=== PATIENT | female | born 1970 | race Caucasian/White ===

== ENCOUNTER 2016-07-17 15:14 | Outpatient (CLI) ==
[2016-01-04 15:14] VITALS: BMI 25.9
[2016-07-17 16:18] LABS: BASOPHILS % (AUTO) 0.3 % (0.0-3.0); EOSINOPHILS # (AUTO) 0.3 K/ul (0.0-0.7); EOSINOPHILS % (AUTO) 2.7 % (0.0-7.0); HEMATOCRIT 43.3 % (37.0-47.0); HEMOGLOBIN 15.2 g/dl (12.0-16.0); IMMATURE GRANULOCYTE % (AUTO) 0.2 % (0.0-5.0); LYMPHOCYTES # (AUTO) 2.4 K/uL (0.60-3.4); LYMPHOCYTES % (AUTO) 25.2 (10.0-50.0); MEAN CORPUSCULAR HEMOGLOBIN 30.8 pg (27.0-31.0); MEAN CORPUSCULAR HGB CONC 35.1 (31.8-35.4); MEAN CORPUSCULAR VOLUME 87.8 fl (81.0-99.0); MONOCYTES # (AUTO) 0.7 K/uL (0.4-2.0); MONOCYTES % (AUTO) 7.6 (0-10); NEUTROPHILS # (AUTO) 6.2 K/ul (2.0-6.9); PLATELET COUNT 273 10^3/uL (140-440); RED BLOOD COUNT 4.93 10^6/ul (4.20-5.40); WHITE BLOOD COUNT 9.66 K/ul (4.6-10.2)
[2016-07-17 16:53] LABS: ALBUMIN 3.7 g/dL (3.4-5.0); ALBUMIN/GLOBULIN RATIO 0.97; ANION GAP 12.3; BILIRUBIN,TOTAL 0.28 mg/dL (0.00-1.20); BUN/CREATININE RATIO 24.63; CALCIUM 9.6 mg/dL (8.2-10.2); CHOL/HDL RATIO 3.2 (4.5-5.5); CREATININE 0.69 mg/dL (0.60-1.30); POTASSIUM 4.3 mmol/L (3.5-5.10); TOTAL PROTEIN 7.5 g/dL (6.4-8.2)
== END 2016-07-17 15:15 | disposition home or self-care (01) ==
LOC: LAB 15:14
PROVIDERS: ATTEND Nurse Practitioner Family
DX: Z72.0 Tobacco use (principal); Z78.9 Other specified health status
CPT/HCPCS: 36415; 80053; 80061; 84443; 85025

== ENCOUNTER 2016-08-08 08:00 | Outpatient (CLI) ==
[2016-01-04 15:14] VITALS: BMI 25.9
--- NOTE | 2016-08-08 10:25 | MAMMO ---
EXAM: Digital screening mammogram HISTORY: Screening COMPARISON: 06/08/2014 FINDINGS: Digital MLO and CC views of the right and left breast were performed. There are scatter ed fibroglandular densities. There is no evidence for mass, asymmetry, distortion, or suspicious ca lcifications in either breast. IMPRESSION: 1. No evidence of malignancy in the right or left breast. 2. Annual screening mammogram is recommended in one year. BIRADS category 1, negative examination
== END 2016-08-08 08:01 | disposition home or self-care (01) ==
LOC: RAD 08:00
PROVIDERS: ATTEND Nurse Practitioner Family
DX: Z12.31 Encounter for screening mammogram for malignant neoplasm of breast (principal)

== ENCOUNTER 2016-10-14 15:17 | Emergency (ER) ==
[2016-10-14 15:23] VITALS: BP 106/70; TEMP 97.8; BMI 23.0
[2016-10-14] MEDS ORDERED: DECADRON 4 MG/ML SDV IM STA (15:32)
[2016-10-14] MEDS ORDERED: DUONEB NEB STA (15:32)
[2016-10-14] MEDS ORDERED: ZITHROMAX PO STA (15:33)
--- NOTE | 2016-10-14 16:02 | DI ---
EXAM: Two-view chest. HISTORY: Cough. COMPARISON: 02/03/2016 FINDINGS: PA and and lateral views of the chest. There are postoperative changes in the cervical sp ine. The lungs are clear without consolidation or effusion. The heart size and pulmonary vasculatur e is normal. There is no pneumothorax. The osseous structures are normal for age. The aorta is un remarkable. IMPRESSION: No acute pulmonary disease.
--- NOTE | 2016-10-14 16:23 | ED.PDOC ---
General ED Provider: Dr. CHARISMA VÁSQUEZ Chief Complaint: Respiratory Complaint Stated Complaint: COUGH RUNNY NOSE Time Seen by Physician: 15:18 Mode of Arrival: Walk-In Information Source: Patient Exam Limitations: No limitations [facility] Documentation Reviewed and Agree: Yes Respiratory Complaint Exam - Respiratory Complaint/Exam Symptoms Are: Still present Timing: Constant Initial Severity: Mild Current Severity: Mild Location: Chest Character: Reports: Non-productive cough Aggravating: Reports: None Alleviating: Reports: None Associated Signs and Symptoms: Denies: Rapid breathing, Dyspnea, Fever, Chills, Chest pain, Pleuritic chest pain, Wheezing, Hemoptysis, Dizziness, Calf pain, Calf swelling, Edema, URI, Nasal congestion, Hoarseness, Sinus discomfort, Vomiting, Sore throat, Weight loss, Decreased oral intake, Increased thirst, Increased appetite, Increased urination Related History: Reports: Similar episode History of Healthcare-Acquired Pneumonia: No Related Surgical History: Reports: None Pulmonary Embolism Risk Factors: Smoking Cardiac Risk Factors: Reports: Smoking Pseudomonas Risk Factors: Reports: None Tuberculosis Risk Factors: Reports: None Status Asthmaticus Risk Factors: Reports: None Home Oxygen Use: No Recent Stress Test: No Recent Echo/LV Function: No Current Antibiotic Use: No Current Asthma Medication Use: No Respiratory Distress: None Inadequate Respiratory Effort: No Dysphagia Present: No Stridor Present: No JVD Present: No Accessory Muscle Use: No Retractions: Not Present Diminished Breath Sounds: No Sinus Tenderness: None Grunting Respirations: No Kussmaul Respirations: No Differential Diagnoses: Pneumonia, Bronchitis Review of Systems - Review Of Systems Constitutional: Reports: No symptoms Eyes: Reports: No symptoms Ears, Nose, Mouth, Throat: Reports: No symptoms Respiratory: Reports: Cough ( WITH PHELEM CLEAR PHELEM) Cardiac: Reports: No symptoms GI: Reports: No symptoms : Reports: No symptoms Musculoskeletal: Reports: No symptoms Skin: Reports: No symptoms Neurological: Reports: No symptoms Endocrine: Reports: No symptoms Hematologic/Lymphatic: Reports: No symptoms All Other Systems: Reviewed and Negative Past Medical History - Past Medical History Endocrine: Reports: None Cardiovascular: Reports: None Respiratory: Reports: COPD Hematological: Reports: None Gastrointestinal: Reports: GERD, Liver (HEP-C. ) Genitourinary: Reports: UTI Neuro/Psych: Reports: Bipolar Disorder Musculoskeletal: Reports: Back Pain Cancer: Reports: None Last Menstrual Period: 5 days ago Other Pertinent Past Medical History: HEP-C. CURRENT INTERNAL HEMROIDS. - Surgical History General Surgical History: Reports: Orthopedic (C5-6 Fusion) - Family History Family History: Reports: None - Social History Smoking Status: Current some day smoker Hx Substance Use: No Alcohol Screening: Occasionally - Immunizations Tetanus Shot up to Date: Yes Physical Exam - Physical Exam Appearance: Well-appearing, No pain distress, Well-nourished Eyes: YEN, EOMI, Conjunctiva clear ENT: Ears normal, Nose normal, Oropharynx normal Respiratory: Airway patent, Breath sounds clear, Breath sounds equal, Respirations nonlabored Cardiovascular: RRR, Pulses normal, No rub, No murmur GI/: Soft, Nontender, No masses, Bowel sounds normal, No Organomegaly Musculoskeletal: Normal strength, ROM intact, No edema, No calf tenderness Skin: Warm, Dry, Normal color Neurological: Sensation intact, Motor intact, Reflexes intact, Cranial nerves intact, Alert, Oriented Psychiatric: Affect appropriate, Mood appropriate Interpretation - Radiology Interpretation Radiology Interpretation By: ED Physician Radiology Results: Negative Exam Interpreted: CXR Critical Care Note - Critical Care Note Total Time (mins): 0 Course - Course Orders, Labs, Meds: Orders Category Date Time Status Azithromycin [Zithromax] MEDS 10/14/16 15:33 Discontinued 500 mg PO ONCE STA Dexamethasone 4 mg/ml Inj [Decadron 4 mg/ml Sdv] MEDS 10/14/16 15:32 Discontinued 4 mg IM ONCE STA CHEST, 2 VIEWS PA & LAT Stat RADS 10/14/16 15:33 Completed Medications Discontinued Medications Generic Name Dose Route Start Last Admin Trade Name Katie PRN Reason Stop Dose Admin Azithromycin 500 mg 10/14/16 15:33 10/14/16 15:40 Zithromax PO 10/14/16 15:34 500 mg ONCE STA Administration Dexamethasone Sodium Phosphate 4 mg 10/14/16 15:32 10/14/16 15:40 Decadron 4 Mg/Ml Sdv IM 10/14/16 15:33 4 mg ONCE STA Administration Vital Signs: Temp Pulse Resp BP Pulse Ox 10/14/16 15:18 97.8 F 103 H 16 106/70 97 Departure - Departure Time of Disposition: 16:22 (REFUSED AJITH MACIAS PRESENT) Disposition: HOME SELF-CARE Discharge Problem: Viral syndrome Instructions: Viral Syndrome (ED) Condition: Good Pt referred to PMD for follow-up: Yes Allergies/Adverse Reactions: Allergies No Known Allergies Allergy (Uncoded 11/22/12 12:31) Home Medications: Ambulatory Orders 1 [No Reported Medications] 10/14/16
== END 2016-10-14 16:32 | disposition home or self-care (01) ==
LOC: ED 15:17
DX: B34.9 Viral infection, unspecified (principal); F17.210 Nicotine dependence, cigarettes, uncomplicated
CPT/HCPCS: 96372; 99283

== ENCOUNTER 2017-02-02 05:25 | Outpatient (CLI) ==
[2017-02-02 05:49] VITALS: BMI 23.1
== END 2017-02-02 05:26 | disposition critical access hospital (66) ==
LOC: AMBL 05:25
PROVIDERS: ATTEND Emergency Medicine
DX: T78.40XA Allergy, unspecified, initial encounter (principal); J31.0 Chronic rhinitis

== ENCOUNTER 2017-02-02 05:40 | Emergency (ER) ==
[2017-02-02 05:49] VITALS: BP 128/84; TEMP 98.7; BMI 23.1
[2017-02-02] MEDS ORDERED: DECADRON 4 MG/ML SDV IM STA (06:18)
--- NOTE | 2017-02-02 06:21 | ED.PDOC ---
General ED Provider: Dr. NATALIE UREÑA Chief Complaint: Allergic Reaction Stated Complaint: Itching all over the body, Time Seen by Physician: 06:18 Mode of Arrival: Ambulance Information Source: Patient Primary Care Provider: NATALIE UREÑA-[facility] Nursing and Triage Documentation Reviewed and Agree: Yes Reviewed sepsis parameters & appropriate labs ordered?: Yes System Inflammatory Response Syndrome: Not Applicable Sepsis Protocol: For patient's 13 years and over: Temp is 96.8 and below OR 101 and greater Pulse >90 BPM Resp >20/minute Acutely Altered Mental Status Are patient's symptoms suggestive of a new infection, such as: -Pneumonia -Skin, Soft Tissue -Endocarditis -UTI -Bone, Joint Infection -Implantable Device -Acute Abdominal Infection -Wound Infection -Meningitis -Blood Stream Catheter Infection -Unknown Skin Complaint Exam - Skin Rash/Itching Complaint/Exam Symptoms Are: Still present Initial Severity: Mild Current Severity: Mild Potential Exposures: Reports: Pet exposure Aggravating: Reports: None Alleviating: Reports: None Associated Signs and Symptoms: Denies: Difficulty breathing, Fever, Chills Differential Diagnoses: Contact Dermatitis Review of Systems - Review Of Systems Constitutional: Reports: No symptoms Eyes: Reports: No symptoms Ears, Nose, Mouth, Throat: Reports: No symptoms Respiratory: Reports: No symptoms Cardiac: Reports: No symptoms GI: Reports: No symptoms : Reports: No symptoms Musculoskeletal: Reports: No symptoms Skin: Reports: Rash Neurological: Reports: No symptoms Endocrine: Reports: No symptoms Hematologic/Lymphatic: Reports: No symptoms All Other Systems: Reviewed and Negative Past Medical History - Past Medical History Previously Healthy: Yes Endocrine: Reports: None Cardiovascular: Reports: None Respiratory: Reports: COPD Hematological: Reports: None Gastrointestinal: Reports: GERD, Liver (HEP-C. ) Genitourinary: Reports: UTI Neuro/Psych: Reports: Bipolar Disorder Musculoskeletal: Reports: Back Pain Cancer: Reports: None Last Menstrual Period: 3 WEEKS AGO Other Pertinent Past Medical History: HEP-C. CURRENT INTERNAL HEMROIDS. - Surgical History General Surgical History: Reports: Orthopedic (C5-6 Fusion) - Family History Family History: Reports: None - Social History Smoking Status: Current some day smoker Hx Substance Use: No Alcohol Screening: Occasionally - Immunizations Tetanus Shot up to Date: No Physical Exam - Physical Exam Appearance: Well-appearing, No pain distress, Well-nourished Eyes: YEN, EOMI, Conjunctiva clear ENT: Ears normal, Nose normal, Oropharynx normal Respiratory: Airway patent, Breath sounds clear, Breath sounds equal, Respirations nonlabored Cardiovascular: RRR, Pulses normal, No rub, No murmur GI/: Soft, Nontender, No masses, Bowel sounds normal, No Organomegaly Musculoskeletal: Normal strength, ROM intact, No edema, No calf tenderness Skin: Warm, Dry, Normal color Neurological: Sensation intact, Motor intact, Reflexes intact, Cranial nerves intact, Alert, Oriented Psychiatric: Affect appropriate, Mood appropriate Critical Care Note - Critical Care Note Total Time (mins): 10 Course - Course Orders, Labs, Meds: Orders Category Date Time Status Dexamethasone 4 mg/ml Inj [Decadron 4 mg/ml Sdv] MEDS 02/02/17 06:18 Stat 4 mg IM ONCE STA Vital Signs: Temp Pulse Resp BP Pulse Ox 02/02/17 05:43 98.7 F 100 H 20 128/84 99 Departure - Departure Time of Disposition: 06:21 Disposition: HOME SELF-CARE Discharge Problem: Contact dermatitis Qualifiers: Contact dermatitis type: allergic Contact dermatitis trigger: other trigger Qualified Code(s): L23.89 - Allergic contact dermatitis due to other agents; L23.8 - Allergic contact dermatitis due to other agents Instructions: Contact Dermatitis (ED) Condition: Stable Pt referred to PMD for follow-up: Yes Additional Instructions: Take medication with food. If not better f/u at [facility] Prescriptions: Diphenhydramine HCl [Benadryl] 25 mg PO Q6H #14 capsule Prednisone 10 mg PO BIDWM #14 tablet Allergies/Adverse Reactions: Allergies aspirin Adverse Reaction (Verified 02/02/17 05:49) "ACHY STOMACH" Home Medications: Ambulatory Orders Diphenhydramine HCl [Benadryl] 25 mg PO Q6H #14 capsule 02/02/17 Prednisone 10 mg PO BIDWM #14 tablet 02/02/17 Disposition Discussed With: Patient
== END 2017-02-02 06:44 | disposition home or self-care (01) ==
LOC: ED 05:40
DX: L23.89 Allergic contact dermatitis due to other agents (principal); F17.210 Nicotine dependence, cigarettes, uncomplicated
CPT/HCPCS: 96372; 99282

== ENCOUNTER 2017-03-03 18:47 | Emergency (ER) ==
[2017-03-03 18:57] VITALS: BP 117/67; TEMP 99.9; BMI 23.5
[2017-03-03] MEDS ORDERED: TETANUS DIPHTHERIA TOXOIDS IM ONE (19:19)
[2017-03-03] MEDS ORDERED: CLEOCIN PO STA (19:20)
--- NOTE | 2017-03-03 19:50 | DI ---
EXAM: Left fourth digit HISTORY: Foreign body COMPARISON: None. FINDINGS: There is no evidence of fracture or bony abnormality. The surrounding soft tissues are un remarkable. IMPRESSION: No evidence of fracture or foreign body.
--- NOTE | 2017-03-03 19:53 | ED.PDOC ---
General ED Provider: Dr. FREDA STILES-ER Chief Complaint: Finger Laceration Stated Complaint: i cut my finger on picture frame yesterday--now its swollen and red Time Seen by Physician: 19:53 Mode of Arrival: Walk-In Information Source: Patient Exam Limitations: No limitations Primary Care Provider: NATALIE UREÑA-[facility] Nursing and Triage Documentation Reviewed and Agree: Yes Reviewed sepsis parameters & appropriate labs ordered?: Yes System Inflammatory Response Syndrome: Not Applicable Sepsis Protocol: For patient's 13 years and over: Temp is 96.8 and below OR 101 and greater Pulse >90 BPM Resp >20/minute Acutely Altered Mental Status Are patient's symptoms suggestive of a new infection, such as: -Pneumonia -Skin, Soft Tissue -Endocarditis -UTI -Bone, Joint Infection -Implantable Device -Acute Abdominal Infection -Wound Infection -Meningitis -Blood Stream Catheter Infection -Unknown Skin Complaint Exam - Laceration/Abrasion/Hand Complaint/Exam Location of Injury: Left, Digit #4 Mechanism of Injury: Laceration Onset/Duration: 24 hrs Symptoms Are: Still present Initial Severity: Mild Current Severity: Mild Aggravating: Movement Alleviating: Compression Associated Signs and Symptoms: Reports: Erythema. Denies: Fever, Chills, Numbness, Tingling Differential Diagnoses: Laceration, Other Review of Systems - Review Of Systems Constitutional: Reports: No symptoms Eyes: Reports: No symptoms Ears, Nose, Mouth, Throat: Reports: No symptoms Respiratory: Reports: No symptoms Cardiac: Reports: No symptoms GI: Reports: No symptoms : Reports: No symptoms Musculoskeletal: Reports: No symptoms Skin: Reports: No symptoms Neurological: Reports: No symptoms Endocrine: Reports: No symptoms Hematologic/Lymphatic: Reports: No symptoms All Other Systems: Reviewed and Negative Past Medical History - Past Medical History Previously Healthy: Yes Endocrine: Reports: None Cardiovascular: Reports: None Respiratory: Reports: COPD Hematological: Reports: None Gastrointestinal: Reports: GERD, Liver (HEP-C. ) Genitourinary: Reports: UTI Neuro/Psych: Reports: Bipolar Disorder Musculoskeletal: Reports: Back Pain Cancer: Reports: None Last Menstrual Period: 01/30/2018 Other Pertinent Past Medical History: HEP-C. CURRENT INTERNAL HEMROIDS. - Surgical History General Surgical History: Reports: Orthopedic (C5-6 Fusion) - Family History Family History: Reports: None - Social History Smoking Status: Current every day smoker Hx Substance Use: No Alcohol Screening: Occasionally Lives: With family - Immunizations Tetanus Shot up to Date: (unsure) Physical Exam - Physical Exam Appearance: Well-appearing, No pain distress, Well-nourished Pain Distress: Mild Eyes: YEN, EOMI, Conjunctiva clear ENT: Ears normal, Nose normal, Oropharynx normal Neck: Supple Respiratory: Airway patent, Breath sounds clear, Breath sounds equal, Respirations nonlabored Cardiovascular: RRR, Pulses normal, No rub, No murmur GI/: Soft, Nontender, No masses, Bowel sounds normal, No Organomegaly Musculoskeletal: Normal strength, ROM intact, No edema, No calf tenderness Skin: Warm, Dry, Normal color Neurological: Sensation intact, Motor intact, Reflexes intact, Cranial nerves intact, Alert, Oriented Psychiatric: Affect appropriate, Mood appropriate Critical Care Note - Critical Care Note Total Time (mins): 0 Course - Course Orders, Labs, Meds: Orders Category Date Time Status Clindamycin HCl [Cleocin] MEDS 03/03/17 19:20 Discontinued 150 mg PO ONCE STA Tetanus, Diphtheria Tox,Adult [Tetanus Diphtheria MEDS 03/03/17 19:19 Discontinued Toxoids] 0.5 ml IM .ONCE ONE FINGER(S), LEFT MIN 2V Stat RADS 03/03/17 19:02 Completed Medications Discontinued Medications Generic Name Dose Route Start Last Admin Trade Name Katie PRN Reason Stop Dose Admin Clindamycin HCl 150 mg 03/03/17 19:20 03/03/17 19:26 Cleocin PO 03/03/17 19:21 150 mg ONCE STA Administration Tetanus/Diphtheria Toxoids 0.5 ml 03/03/17 19:19 03/03/17 19:28 Tetanus Diphtheria Toxoids IM 03/03/17 19:20 0.5 ml .ONCE ONE Administration she does have good flexion and extension of the finger--good cap refill-- slightly erythematous around lac Vital Signs: Temp Pulse Resp BP Pulse Ox 03/03/17 18:51 99.9 F H 86 18 117/67 97 Departure - Departure Time of Disposition: 19:57 Disposition: HOME SELF-CARE Discharge Problem: Laceration of finger Instructions: Finger Laceration (ED) Condition: Good Pt referred to PMD for follow-up: Yes IPMP verified?: No Additional Instructions: wash wound with soap and water--apply triple antbx till healed--clindamycin 150mg tid x 7 days--f/u with ortho Allergies/Adverse Reactions: Allergies aspirin Adverse Reaction (Verified 02/02/17 05:49) "ACHY STOMACH" Home Medications: Ambulatory Orders 1 [No Reported Medications] 03/03/17 Disposition Discussed With: Patient
== END 2017-03-03 20:05 | disposition home or self-care (01) ==
LOC: ED 18:47
DX: S61.215A Laceration without foreign body of left ring finger without damage to nail, initial encounter (principal); W45.8XXA Other foreign body or object entering through skin, initial encounter; F17.210 Nicotine dependence, cigarettes, uncomplicated
CPT/HCPCS: 90471; 90714; 96372; 99283

== ENCOUNTER 2017-06-05 14:57 | Outpatient (CLI) | END 2017-06-05 14:58 | disposition home or self-care (01) | LOC: CAR 14:57 | PROVIDERS: ATTEND Physician Assistant | DX: R06.81 Apnea, not elsewhere classified (principal) ==

== ENCOUNTER 2017-06-14 12:48 | Outpatient (CLI) | END 2017-06-14 12:49 | disposition home or self-care (01) | LOC: CAR 12:48 | PROVIDERS: ATTEND Physician Assistant | DX: R06.00 Dyspnea, unspecified (principal) ==

== ENCOUNTER 2017-06-23 12:00 | Outpatient (CLI) | END 2017-06-23 12:01 | disposition short-term general hospital (02) | LOC: AMBL 12:00 | PROVIDERS: ATTEND Family Medicine | DX: R10.9 Unspecified abdominal pain (principal) ==

== ENCOUNTER 2017-07-17 10:06 | Outpatient (CLI) | END 2017-07-17 10:27 | disposition short-term general hospital (02) | LOC: AMBL 10:06 | PROVIDERS: ATTEND Internal Medicine | DX: R45.851 Suicidal ideations (principal) ==

== ENCOUNTER 2017-07-26 11:42 | Outpatient (CLI) | END 2017-07-26 11:43 | disposition home or self-care (01) | LOC: LAB 11:42 | PROVIDERS: ATTEND Physician Assistant | DX: R79.89 Other specified abnormal findings of blood chemistry (principal) | CPT/HCPCS: 36415; 80178; 84439; 84443; 84480 ==

== ENCOUNTER 2017-07-26 19:43 | Outpatient (CLI) | END 2017-07-26 20:16 | disposition short-term general hospital (02) | LOC: AMBL 19:43 | PROVIDERS: ATTEND Internal Medicine Geriatric Medicine | DX: S05.62XA Penetrating wound without foreign body of left eyeball, initial encounter (principal); S05.42XA Penetrating wound of orbit with or without foreign body, left eye, initial encounter; R04.0 Epistaxis; H53.8 Other visual disturbances; W26.9XXA Contact with unspecified sharp object(s), initial encounter ==

== ENCOUNTER 2017-07-31 07:36 | Outpatient (CLI) ==
--- NOTE | 2017-07-31 08:26 | US ---
EXAM: Right upper quadrant abdominal ultrasound. History: Abdominal pain. Comparison: Abdominal ultrasound 06/23/2014 Technique: Multiple sonographic images through the abdomen were obtained. Color duplex Doppler was used to interrogate vascular flow. Findings: The liver is not enlarged. The visualized pancreas demonstrates no gross abnormality. No focal live r lesions identified sonographically. Limited visualization of the right kidney demonstrates no evid ence for hydronephrosis. There is antegrade flow within the main portal vein. Periportal echoes wit hin the liver are maintained. No shadowing gallstones. Gallbladder wall is not thickened. Common b ile duct measures 0.4 cm in caliber. Impression: Unremarkable exam
== END 2017-07-31 07:37 | disposition home or self-care (01) ==
LOC: RAD 07:36
PROVIDERS: ATTEND Surgery
DX: R10.84 Generalized abdominal pain (principal)

== ENCOUNTER 2017-09-24 10:18 | Outpatient (CLI) | END 2017-09-24 10:19 | disposition home or self-care (01) | LOC: LAB 10:18 | PROVIDERS: ATTEND Physician Assistant | DX: F31.9 Bipolar disorder, unspecified (principal) | CPT/HCPCS: 36415; 80178 ==

== ENCOUNTER 2017-10-24 11:25 | Outpatient (CLI) ==
[2017-10-16 03:30] VITALS: BMI 25.7
== END 2017-10-24 11:40 | disposition short-term general hospital (02) ==
LOC: AMBL 11:25
PROVIDERS: ATTEND Emergency Medicine
DX: F10.231 Alcohol dependence with withdrawal delirium (principal)

== ENCOUNTER 2017-10-26 10:44 | Outpatient (CLI) ==
[2017-10-16 03:30] VITALS: BMI 25.7
== END 2017-10-26 10:45 | disposition home or self-care (01) ==
LOC: LAB 10:44
PROVIDERS: ATTEND Physician Assistant
DX: F31.13 Bipolar disorder, current episode manic without psychotic features, severe (principal)
CPT/HCPCS: 36415; 80178

== ENCOUNTER 2017-11-04 20:07 | Emergency (ER) ==
[2017-11-04 20:17] VITALS: BMI 29.2
--- NOTE | 2017-11-04 20:20 | ED.PDOC ---
General Stated Complaint: Brought in by police with vocalization of suicidal ideation. She is also has altered LOC with aggression and marlen behavior. Mother had called the police with report that she my want to burn her house. Time Seen by Physician: 20:18 Mode of Arrival: Walk-In Information Source: Police Exam Limitations: No limitations, Altered mental status Nursing and Triage Documentation Reviewed and Agree: Yes Does patient meet sepsis criteria?: No System Inflammatory Response Syndrome: Not Applicable <ELTON ALFORD - Last Filed: 11/05/17 07:22> <FREDA PEREZ - Last Filed: 11/05/17 18:41> ED Provider: Dr. FREDA PEREZ Chief Complaint: Psychiatric Complaint Primary Care Provider: FAB CABA Sepsis Protocol: For patient's 13 years and over: Temp is 96.8 and below OR 101 and greater Pulse >90 BPM Resp >20/minute Acutely Altered Mental Status Are patient's symptoms suggestive of a new infection, such as: -Pneumonia -Skin, Soft Tissue -Endocarditis -UTI -Bone, Joint Infection -Implantable Device -Acute Abdominal Infection -Wound Infection -Meningitis -Blood Stream Catheter Infection -Unknown Review of Systems - Review Of Systems Constitutional: Reports: Other (uncooperative unable to answer. ) Neurological: Reports: Anxiety, Emotional problems All Other Systems: Other (unable to obtain due to change in LOC) <ELTON ALFORD - Last Filed: 11/05/17 07:22> Past Medical History - Past Medical History Previously Healthy: Yes Endocrine: Reports: None Cardiovascular: Reports: None Respiratory: Reports: COPD Hematological: Reports: None Gastrointestinal: Reports: GERD, Liver (HEP-C. ) Genitourinary: Reports: UTI Neuro/Psych: Reports: Bipolar Disorder Musculoskeletal: Reports: Back Pain Cancer: Reports: None Last Menstrual Period: UNABLE TO OBTAIN Other Pertinent Past Medical History: HEP-C. CURRENT INTERNAL HEMROIDS. - Surgical History General Surgical History: Reports: Orthopedic (C5-6 Fusion) - Family History Family History: Reports: None - Social History Smoking Status: Unknown if ever smoked Hx Substance Use: No Alcohol Screening: Occasionally - Immunizations Tetanus Shot up to Date: Yes <ELTON ALFORD - Last Filed: 11/05/17 07:22> Physical Exam - Physical Exam Appearance: Ill-appearing Psychiatric: Anxious (agressive ) <ELTON ALFORD - Last Filed: 11/05/17 07:22> Interpretation - EKG Interpretation Time of EKG #1: 23:04 Rate: Normal Rhythm: Sinus [place]: NL ST Segment: Normal <ELTON ALFORD - Last Filed: 11/05/17 07:22> Re-Evaluation - Re-Evaluation Time of Re-Evaluation: 07:23 Status: Improved (rested well after geodon and) Vital Signs Stable: Yes <ELTON ALFORD - Last Filed: 11/05/17 07:22> Physician Notification - Case Discussed Physician Notified: Dr fonseca Time of Notification: 23:36 (Declined admission due to ease of transfer to Psych from ER than after they area admitted. ) Endorsed To/Discussed With: Dr Priest Time of Discussion: 07:24 <ELTON ALFORD - Last Filed: 11/05/17 07:22> Critical Care Note - Critical Care Note Total Time (mins): 45 <ELTON ALFORD - Last Filed: 11/05/17 07:22> Course - Course Hematology/Chemistry: 11/04/17 21:37 11/04/17 21:37 <ELTON ALFORD - Last Filed: 11/05/17 07:22> - Course Hematology/Chemistry: 11/04/17 21:37 11/05/17 07:20 <FREDA PEREZ - Last Filed: 11/05/17 18:41> - Course Orders, Labs, Meds: Lab Review 11/04/17 11/04/17 11/04/17 21:37 21:37 21:37 WBC 8.18 RBC 4.23 Hgb 12.9 Hct 38.3 MCV 90.5 MCH 30.5 MCHC 33.7 RDW Coeff of Ramya 14.2 Plt Count 262 Immature Gran % (Auto) 0.4 Neut % (Auto) 54.8 Lymph % (Auto) 31.4 Ferry % (Auto) 7.8 Eos % (Auto) 4.9 Baso % (Auto) 0.7 Immature Gran # (Auto) 0.0 Neut # (Auto) 4.5 Lymph # (Auto) 2.6 Ferry # (Auto) 0.6 Eos # (Auto) 0.4 Baso # (Auto) 0.1 Sodium 141.8 Potassium 3.47 L Chloride 107.1 H Carbon Dioxide 28.2 Anion Gap 9.97 BUN 13.6 Creatinine 0.84 Estimated GFR (MDRD) 73.00 BUN/Creatinine Ratio 16.19 Glucose 96.5 Calcium 8.75 Total Bilirubin 0.32 AST 47.0 H ALT 19.4 Alkaline Phosphatase 81.1 Total Protein 7.64 Albumin 4.02 Globulin 3.62 Albumin/Globulin Ratio 1.11 Serum , Qual Negative Urine Color Urine Clarity Urine pH Ur Specific Stout Urine Protein Urine Glucose (UA) Urine Ketones Urine Blood Urine Nitrite Urine Bilirubin Urine Urobilinogen Ur Leukocyte Esterase Salicylate Level mg/dL < 1.00 Urine Opiates Screen Ur Oxycodone Screen Urine Methadone Screen Ur Propoxyphene Screen Acetaminophen < 10.0 L Ur Barbiturates Screen U Tricyclic Antidepress Ur Phencyclidine Scrn Ur Amphetamine Screen U Methamphetamines Scrn U Benzodiazepines Scrn Urine Cocaine Screen U Cannabinoids Screen Plasma/Serum Alcohol 283.5 H 11/04/17 11/04/17 11/05/17 22:59 22:59 07:20 WBC RBC Hgb Hct MCV MCH MCHC RDW Coeff of Ramya Plt Count Immature Gran % (Auto) Neut % (Auto) Lymph % (Auto) Ferry % (Auto) Eos % (Auto) Baso % (Auto) Immature Gran # (Auto) Neut # (Auto) Lymph # (Auto) Ferry # (Auto) Eos # (Auto) Baso # (Auto) Sodium Potassium Chloride Carbon Dioxide Anion Gap BUN Creatinine Estimated GFR (MDRD) BUN/Creatinine Ratio Glucose Calcium Total Bilirubin AST ALT Alkaline Phosphatase Total Protein Albumin Globulin Albumin/Globulin Ratio Serum , Qual Urine Color Yellow Urine Clarity Clear Urine pH 6.5 Ur Specific Stout 1.010 Urine Protein Negative Urine Glucose (UA) Negative Urine Ketones Negative Urine Blood Negative Urine Nitrite Negative Urine Bilirubin Negative Urine Urobilinogen 0.2 Ur Leukocyte Esterase Negative Salicylate Level mg/dL Urine Opiates Screen Negative Ur Oxycodone Screen Negative Urine Methadone Screen Negative Ur Propoxyphene Screen Negative Acetaminophen Ur Barbiturates Screen Negative U Tricyclic Antidepress Negative Ur Phencyclidine Scrn Negative Ur Amphetamine Screen Negative U Methamphetamines Scrn Negative U Benzodiazepines Scrn Negative Urine Cocaine Screen Negative U Cannabinoids Screen Negative Plasma/Serum Alcohol 15.5 11/05/17 07:20 WBC RBC Hgb Hct MCV MCH MCHC RDW Coeff of Ramya Plt Count Immature Gran % (Auto) Neut % (Auto) Lymph % (Auto) Ferry % (Auto) Eos % (Auto) Baso % (Auto) Immature Gran # (Auto) Neut # (Auto) Lymph # (Auto) Ferry # (Auto) Eos # (Auto) Baso # (Auto) Sodium 138.2 Potassium 3.72 Chloride 107.0 Carbon Dioxide 23.3 Anion Gap 11.62 BUN 12.7 Creatinine 0.83 Estimated GFR (MDRD) 74.00 BUN/Creatinine Ratio 15.30 Glucose 115.0 H Calcium 8.90 Total Bilirubin AST ALT Alkaline Phosphatase Total Protein Albumin Globulin Albumin/Globulin Ratio Serum , Qual Urine Color Urine Clarity Urine pH Ur Specific Stout Urine Protein Urine Glucose (UA) Urine Ketones Urine Blood Urine Nitrite Urine Bilirubin Urine Urobilinogen Ur Leukocyte Esterase Salicylate Level mg/dL Urine Opiates Screen Ur Oxycodone Screen Urine Methadone Screen Ur Propoxyphene Screen Acetaminophen Ur Barbiturates Screen U Tricyclic Antidepress Ur Phencyclidine Scrn Ur Amphetamine Screen U Methamphetamines Scrn U Benzodiazepines Scrn Urine Cocaine Screen U Cannabinoids Screen Plasma/Serum Alcohol Orders Category Date Time Status EKG-(ED ONLY) Stat CARDIO 11/04/17 20:16 Completed ED [employer] APPLIED ONCE EMERGENCY 11/04/17 20:16 Active ED IV/MEDIPORT/POWERPORT .ONCE EMERGENCY 11/04/17 20:15 Active Restrain [ED RESTRAINTS] .ONCE EMERGENCY 11/04/17 20:17 Active Restrain [ED RESTRAINTS] .ONCE EMERGENCY 11/04/17 23:55 Active Restraints [ED RESTRAINTS] .ONCE EMERGENCY 11/05/17 03:55 Active Restraints [ED RESTRAINTS] .ONCE EMERGENCY 11/05/17 07:27 Active Strain Urine [ED STRAIN URINE] .ONCE EMERGENCY 11/04/17 21:22 Inactive ACETAMINOPHEN Stat LAB 11/04/17 21:37 Completed BLOOD ALCOHOL Stat LAB 11/04/17 21:37 Completed BMP [BASIC METABOLIC PANEL] Stat LAB 11/05/17 07:20 Completed CBC W/ AUTO DIFF Stat LAB 11/04/17 21:37 Completed COMPREHENSIVE METABOLIC PANEL Stat LAB 11/04/17 21:37 Completed DRUG SCREEN, URINE, RAPID Stat LAB 11/04/17 22:59 Completed ETOH LEVEL [BLOOD ALCOHOL] Stat LAB 11/05/17 07:20 Completed HCG QUALITATIVE [SERUM ] Stat LAB 11/04/17 21:37 Completed SALICYLATE Stat LAB 09/24/18 21:37 Completed URINALYSIS C & S IF INDICATED Stat LAB 11/04/17 22:59 Completed 0.9 % Sodium Chloride [Saline Flush] MEDS 11/04/17 20:15 Active 1 syr IVF PRN PRN Chlordiazepoxide HCl [Librium] MEDS 11/05/17 08:14 Discontinued 50 mg PO ONCE STA Lorazepam [Ativan] MEDS 11/04/17 20:15 Discontinued 2 mg IM ONCE STA Lorazepam [Ativan] MEDS 11/05/17 13:17 Discontinued 2 mg IVP ONCE STA Nicotine 21 mg [Nicoderm 21 mg] MEDS 11/05/17 14:00 Active 1 patch TD DAILY Ondansetron HCl/Pf [Zofran 4 mg/2 ml] MEDS 11/05/17 13:12 Discontinued 4 mg IVP ONCE STA Potassium Chloride in 0.9%NaCl [Sodium Chloride 0.9%- MEDS 11/05/17 07:35 Discontinued KCl 20 Meq] 1,000 ml IV 100 mls/hr Ringers Lactated Solution [Lactated Ringers] 1,000 ml MEDS 11/04/17 22:36 Discontinued IV BOLUS Vitamin B-1 Inj [Thiamine] MEDS 11/04/17 23:00 Discontinued 100 mg IVP DAILY Vitamin B-1 [Thiamine] MEDS 11/05/17 08:14 Discontinued 100 mg PO ONCE STA Ziprasidone Mesylate [Geodon] MEDS 11/04/17 20:15 Discontinued 10 mg IM ONCE STA Medications Generic Name Dose Route Start Last Admin Trade Name Freq PRN Reason Stop Dose Admin Nicotine 1 patch 11/05/17 14:00 11/05/17 13:43 Nicoderm 21 Mg TD 1 patch DAILY JEAN Administration Sodium Chloride 1 syr 11/04/17 20:15 Saline Flush IVF PRN PRN To flush IV Discontinued Medications Generic Name Dose Route Start Last Admin Trade Name Freq PRN Reason Stop Dose Admin Chlordiazepoxide HCl 50 mg 11/05/17 08:14 11/05/17 08:23 Librium PO 11/05/17 08:15 50 mg ONCE STA Administration Lactated Ringer's 1,000 mls @ 1,000 mls/hr 11/04/17 22:36 11/05/17 00:09 Lactated Ringers IV 11/04/17 23:35 1,000 mls/hr BOLUS STA Administration Potassium Chloride/Sodium Chloride 1,000 mls @ 100 mls/hr 11/05/17 07:35 07:46 Sodium Chloride 0.9%-Kcl 20 Meq IV 11/05/17 17:34 100 mls/hr .Q10H STA Administration Lorazepam 2 mg 11/04/17 20:15 11/04/17 20:58 Ativan IM 11/04/17 20:16 2 mg ONCE STA Administration Lorazepam 2 mg 11/05/17 13:17 11/05/17 13:24 Ativan IVP 11/05/17 13:18 2 mg ONCE STA Administration Ondansetron HCl 4 mg 11/05/17 13:12 11/05/17 13:21 Zofran 4 Mg/2 Ml IVP 11/05/17 13:13 4 mg ONCE STA Administration Thiamine HCl 100 mg 11/04/17 23:00 11/05/17 00:05 Thiamine IVP 100 mg DAILY JEAN Administration Thiamine HCl 100 mg 11/05/17 08:14 11/05/17 08:23 Thiamine PO 11/05/17 08:15 100 mg ONCE STA Administration Ziprasidone 10 mg 11/04/17 20:15 11/04/17 20:59 Geodon IM 11/04/17 20:16 10 mg ONCE STA Administration Vital Signs: Temp Pulse Resp BP Pulse Ox 11/05/17 04:30 97.2 F L 81 18 110/71 97 11/04/17 20:17 65 18 117/68 98 11/04/17 20:13 0 F L 0 L 0 L 00/00 L 0 L Departure - Departure Pt referred to PMD for follow-up: Yes IPMP verified?: No Disposition Discussed With: Patient, Family <ELTON ALFORD - Last Filed: 11/05/17 07:22> - Departure Time of Disposition: 18:40 <FREDA PEREZ - Last Filed: 11/05/17 18:41> - Departure Disposition: TSF SHORT-TRM HOSP Discharge Problem: Suicidal behavior, Elevated ETOH level Condition: Fair Allergies/Adverse Reactions: Allergies aspirin Adverse Reaction (Verified 02/02/17 05:49) "ACHY STOMACH" Home Medications: Ambulatory Orders Gabapentin 300 mg PO TID 10/16/17 Hydroxyzine Pamoate 25 mg PO QID 10/16/17 [place] Carbonate 300 mg PO QID 10/16/17 Quetiapine Fumarate [Seroquel] 50 mg PO BEDTIME 10/16/17 ED Physician Progress Note <ELTON ALFORD - Last Filed: 11/05/17 07:22> <FREDA PEREZ - Last Filed: 11/05/17 18:41> ED Physician Progress Note: [] 11/05/17 08:[address] Alford at 0705 hrs. Pt assessed. Coherent alert talkative. Jittery. AAOX3 NAD ETOH Level obtained and has reduced from 283 to 15. 11/05/17 08:19 11/05/17 08:22 Patient has requested Breakfast and is eating at present/ Has tremors. Giving Po Librium and Thiamine 11/05/17 09:33 Watching TV Lauging More calm Less tremulous 11/05/17 18:37 Since administration of meds earlier has stabilized and cooperative/Attempted elopment once but brought back by mental health counselor Patient has been accepted by [facility] and is being transferred by [facility]. Patient being transferred and is involuntary due to the danger she had exhibited to herself and others Paper work completed (FREDA PEREZ) Discharge Problem: Suicidal behavior Qualifiers: Attempted self-injury: without attempted self-injury Qualified Code(s): R46.89 - Other symptoms and signs involving appearance and behavior Elevated ETOH level Qualifiers: Blood alcohol level: level not specified Qualified Code(s): R78.0 - Finding of alcohol in blood
[2017-11-04] MEDS: ATIVAN IM STA (20:58)
[2017-11-04] MEDS: GEODON IM STA (20:59)
[2017-11-05] MEDS: THIAMINE IVP SCH (00:05)
[2017-11-05] MEDS: LACTATED RINGERS 1,000 ML IV STA (00:09)
[2017-11-05 04:30] VITALS: BP 110/71; TEMP 97.2
[2017-11-05] MEDS: SODIUM CHLORIDE 0.9%-KCL 20 MEQ 1,000 ML IV STA (07:46)
[2017-11-05] MEDS: THIAMINE PO STA (08:23)
[2017-11-05] MEDS: LIBRIUM PO STA (08:23)
[2017-11-05] MEDS ORDERED: ATIVAN IVP STA (13:12)
[2017-11-05] MEDS: ZOFRAN 4 MG/2 ML IVP STA (13:21)
[2017-11-05] MEDS: ATIVAN IVP STA (13:24)
[2017-11-05] MEDS: NICODERM 21 MG TD SCH (13:43)
== END 2017-11-05 18:45 | disposition short-term general hospital (02) ==
LOC: ED 20:07
DX: R45.851 Suicidal ideations (principal); R40.4 Transient alteration of awareness; R45.6 Violent behavior; R78.0 Finding of alcohol in blood; R46.89 Other symptoms and signs involving appearance and behavior; R25.1 Tremor, unspecified
CPT/HCPCS: 36415; 80048; 80053; 80306; 80307; 81001; 84703; 85025; 93005; 93010; 96361; 96372; 96374; 96375; 99285

== ENCOUNTER 2017-11-05 18:48 | Outpatient (CLI) ==
[2017-11-04 20:17] VITALS: BMI 29.2
== END 2017-11-05 21:14 | disposition short-term general hospital (02) ==
LOC: AMBL 18:48
PROVIDERS: ATTEND Emergency Medicine
DX: R45.851 Suicidal ideations (principal)

== ENCOUNTER 2017-11-20 23:30 | Outpatient (CLI) | END 2017-11-20 23:47 | disposition short-term general hospital (02) | LOC: AMBL 23:30 | PROVIDERS: ATTEND Internal Medicine Geriatric Medicine | DX: R45.851 Suicidal ideations (principal); F31.9 Bipolar disorder, unspecified; F10.10 Alcohol abuse, uncomplicated ==

== ENCOUNTER 2018-03-27 17:35 | Emergency (ER) ==
[2018-03-27 17:49] VITALS: BP 139/90; TEMP 99; BMI 28.8
--- NOTE | 2018-03-27 20:06 | ED.PDOC ---
General ED Provider: Dr. GIAN HOUSE Chief Complaint: Shoulder Pain/Injury Stated Complaint: strained leftr shoulder girdle moving furniture this week.urning sensation and cinstant discomfort in upper trapezius left side and shoulder. Time Seen by Physician: 20:33 Mode of Arrival: Walk-In Information Source: Patient Exam Limitations: No limitations Primary Care Provider: NICHELLE BALLARD Referred to ED by: Other Nursing and Triage Documentation Reviewed and Agree: Yes Does patient meet sepsis criteria?: No System Inflammatory Response Syndrome: Not Applicable Sepsis Protocol: For patient's 13 years and over: Temp is 96.8 and below OR 101 and greater Pulse >90 BPM Resp >20/minute Acutely Altered Mental Status Are patient's symptoms suggestive of a new infection, such as: -Pneumonia -Skin, Soft Tissue -Endocarditis -UTI -Bone, Joint Infection -Implantable Device -Acute Abdominal Infection -Wound Infection -Meningitis -Blood Stream Catheter Infection -Unknown Trauma/Injury Complaint Exam - Truncal Trauma Complaint/Exam Location of Pain: Reports: Left Onset: last few days strained left shoulder and upper back Symptoms Are: Still present Onset of Pain: Reports: Hours Initial Severity: Moderate Current Severity: Moderate Mechanism: Reports: Other Aggravating: Reports: Other Alleviating: Reports: Rest Related History: Reports: Similar episode Related Surgical History: Reports: None Vertebral Tenderness Present: No Vertebral Deformity Present: No Trachial Deviation Present: No JVD Present: No Crepitus Present: No Diminished Breath Sounds: No Muffled Heart Sounds Present: No Paradoxical Chest Wall Movement Present: No Abdominal Guarding Present: No Abdominal Rigidity Present: No Skin Findings: Present: Normal findings Differential Diagnoses: Chest Wall Contusion, Cervical Strain Review of Systems - Review Of Systems Constitutional: Reports: No symptoms Eyes: Reports: No symptoms Ears, Nose, Mouth, Throat: Reports: Epistaxis Respiratory: Reports: No symptoms Cardiac: Reports: No symptoms GI: Reports: No symptoms : Reports: No symptoms Musculoskeletal: Reports: Back pain, Muscle pain, Neck pain Skin: Reports: No symptoms Neurological: Reports: No symptoms Endocrine: Reports: No symptoms Hematologic/Lymphatic: Reports: No symptoms All Other Systems: Reviewed and Negative Past Medical History - Past Medical History Previously Healthy: Yes Endocrine: Reports: None Cardiovascular: Reports: None Respiratory: Reports: COPD Hematological: Reports: None Gastrointestinal: Reports: GERD, Liver (HEP-C. ) Genitourinary: Reports: UTI Neuro/Psych: Reports: Bipolar Disorder Musculoskeletal: Reports: Back Pain Cancer: Reports: None Last Menstrual Period: 28 days ago Other Pertinent Past Medical History: HEP-C. CURRENT INTERNAL HEMROIDS. - Surgical History General Surgical History: Reports: Orthopedic (C5-6 Fusion) - Family History Family History: Reports: None - Social History Smoking Status: Current every day smoker Hx Substance Use: Yes Alcohol Screening: Occasionally Physical Exam - Physical Exam Appearance: Well-appearing Ill-appearing: None Pain Distress: Mild Eyes: YEN ENT: Ears normal Neck: Supple Respiratory: Airway patent Cardiovascular: RRR GI/: Soft Musculoskeletal: Normal strength Critical Care Note - Critical Care Note Total Time (mins): 0 Course - Course Orders, Labs, Meds: Orders Category Date Time Status IV [ED IV/MEDIPORT/POWERPORT] .ONCE EMERGENCY 03/27/18 20:11 Ordered 0.9 % Sodium Chloride [Saline Flush] MEDS 03/27/18 20:11 Ordered 1 syr IVF PRN PRN Morphine Sulfate [Morphine 2 mg/ml Syringe] MEDS 03/27/18 20:16 Stop Req 2 mg IVP ONCE STA Medications Generic Name Dose Route Start Last Admin Trade Name Freq PRN Reason Stop Dose Admin Sodium Chloride 1 syr 03/27/18 20:11 Saline Flush IVF PRN PRN To flush IV Discontinued Medications Generic Name Dose Route Start Last Admin Trade Name Freq PRN Reason Stop Dose Admin Morphine Sulfate 2 mg 03/27/18 20:16 Morphine 2 Mg/Ml Syringe IVP 03/27/18 20:17 ONCE STA Vital Signs: Temp Pulse Resp BP Pulse Ox 03/27/18 17:39 99.0 F 96 H 16 139/90 97 Departure - Departure Time of Disposition: 20:28 Disposition: HOME SELF-CARE Discharge Problem: Left shoulder strain Instructions: Rotator Cuff Injury (ED) Condition: Good Pt referred to PMD for follow-up: Yes IPMP verified?: No Prescriptions: Acetaminophen [Acetaminophen Extra Strength] 500 mg PO TID 4 Days #12 tablet Allergies/Adverse Reactions: Allergies aspirin Adverse Reaction (Verified 03/27/18 17:49) "ACHY STOMACH" Home Medications: Ambulatory Orders Gabapentin 300 mg PO TID 10/16/17 Hydroxyzine Pamoate 25 mg PO Q4-6H PRN 10/16/17 Quetiapine Fumarate [Seroquel] 100 mg PO BEDTIME 10/16/17 Naltrexone HCl 50 mg PO DAILY 01/29/18 Oxcarbazepine [Trileptal] 300 mg PO TID 01/29/18 Acetaminophen [Acetaminophen Extra Strength] 500 mg PO TID 4 Days #12 tablet Levothyroxine Sodium 25 mcg PO DAILY 03/27/18 Disposition Discussed With: Patient
[2018-03-27] MEDS ORDERED: MORPHINE 2 MG/ML SYRINGE IVP STA (20:16)
== END 2018-03-27 20:44 | disposition home or self-care (01) ==
LOC: ED 17:35
DX: S46.912A Strain of unspecified muscle, fascia and tendon at shoulder and upper arm level, left arm, initial encounter (principal); X50.9XXA Other and unspecified overexertion or strenuous movements or postures, initial encounter; F17.210 Nicotine dependence, cigarettes, uncomplicated
CPT/HCPCS: 99282

== ENCOUNTER 2018-04-03 13:38 | Outpatient (CLI) ==
--- NOTE | 2018-04-03 14:18 | DI ---
EXAM: Three views of the left shoulder. History: Left shoulder pain. Findings: No acute fracture or dislocation. Glenohumeral joint is intact. Mild to moderate narrowi ng of the left AC joint with small osteophytes. No abnormal calcifications or radiopaque foreign bod ies. Impression: 1. No acute osseous abnormality. 2. 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
== END 2018-04-03 13:39 | disposition home or self-care (01) ==
LOC: RAD 13:38
PROVIDERS: ATTEND Nurse Practitioner Family
DX: M25.512 Pain in left shoulder (principal)

== ENCOUNTER 2018-04-04 08:58 | Outpatient (CLI) ==
--- NOTE | 2018-04-04 10:30 | US ---
EXAM: Left breast ultrasound. History: Left breast palpable abnormality. Comparison: Bilateral mammogram 04/04/2018 Technique: Multiple sonographic images through the left breast were obtained. Color duplex Doppler was used to interrogate vascular flow. Findings: 0.4 cm x 0.1 cm x 0.6 cm sebaceous cyst within the left breast at 1 o'clock 14 cm from nipple. This correlates with mammography and the palpable abnormality. No other abnormalities are seen within the left breast. Impression: Benign sebaceous cyst within the left breast. There is no sonographic evidence for elvis gnancy. Recommend return to routine screening mammography schedule. BIRADS 2, benign
--- NOTE | 2018-04-04 10:32 | MAMMO ---
EXAM: Bilateral digital diagnostic mammogram (2-D and 3-D) History: Left breast palpable abnormality. Comparison: Bilateral mammogram 06/08/2014 Findings: MLO and CC views of bilateral breasts demonstrate scattered fibroglandular breast parenchy ma. CAD was reviewed by the radiologist. Tomosynthesis was performed. Small focal asymmetry within the superior left breast in the axillary tail. This correlates to the palpable abnormality. Additi onal focal asymmetry within the upper-outer quadrant of the left breast anterior depth. No suspiciou s microcalcifications and no architectural distortions Impression: Indeterminate left breast asymmetries. Recommend further evaluation with ultrasound. BIRADS 0, incomplete further evaluation recommended
== END 2018-04-04 08:59 | disposition home or self-care (01) ==
LOC: RAD 08:58
PROVIDERS: ATTEND Nurse Practitioner Family
DX: N63.21 Unspecified lump in the left breast, upper outer quadrant (principal)

== ENCOUNTER 2018-05-27 00:55 | Emergency (ER) ==
[2018-05-27 01:02] VITALS: BP 130/85; TEMP 97.5; BMI 28.5
[2018-05-27] MEDS ORDERED: SODIUM CHLORIDE 1,000 ML IV STA (01:32)
[2018-05-27] MEDS ORDERED: ANCEF 1 GM in SODIUM CHLORIDE 100 ML IV STA (01:32)
[2018-05-27] MEDS ORDERED: ANCEF ONE (01:44)
--- NOTE | 2018-05-27 02:04 | ED.PDOC ---
General ED Provider: Dr. FREDA STILES-ER Chief Complaint: Finger Pain/Injury Stated Complaint: io slammed a door aNd cut off my fingertips Time Seen by Physician: 00:55 Mode of Arrival: Walk-In Information Source: Patient Exam Limitations: No limitations Primary Care Provider: NICHELLE BALLARD Nursing and Triage Documentation Reviewed and Agree: Yes Does patient meet sepsis criteria?: No System Inflammatory Response Syndrome: Not Applicable Sepsis Protocol: For patient's 13 years and over: Temp is 96.8 and below OR 101 and greater Pulse >90 BPM Resp >20/minute Acutely Altered Mental Status Are patient's symptoms suggestive of a new infection, such as: -Pneumonia -Skin, Soft Tissue -Endocarditis -UTI -Bone, Joint Infection -Implantable Device -Acute Abdominal Infection -Wound Infection -Meningitis -Blood Stream Catheter Infection -Unknown Musculoskeletal Complaint Exam - Hand/Wrist Complaint/Exam Location of Pain: Reports: Digit #3, Digit #4 Mechanism of Injury: Reports: Trauma Onset/Duration: one hour Symptoms Are: Still present Onset of Pain: Reports: Immediate Initial Severity: Mild Current Severity: Moderate Location: Reports: Discrete Character: Reports: Dull, Aching Aggravating: Reports: Movement Associated Signs and Symptoms: Denies: Swelling, Redness, Bruising, Fever, Weakness, Numbness, Tingling Tenderness: Present: Phalanx Compartment Syndrome Risk Factors: Present: Pain Differential Diagnoses: Other Review of Systems - Review Of Systems Constitutional: Reports: No symptoms Eyes: Reports: No symptoms Ears, Nose, Mouth, Throat: Reports: No symptoms Respiratory: Reports: No symptoms Cardiac: Reports: No symptoms GI: Reports: No symptoms : Reports: No symptoms Musculoskeletal: Reports: No symptoms Skin: Reports: No symptoms Neurological: Reports: No symptoms Endocrine: Reports: No symptoms Hematologic/Lymphatic: Reports: No symptoms All Other Systems: Reviewed and Negative Past Medical History - Past Medical History Previously Healthy: Yes Endocrine: Reports: None Cardiovascular: Reports: None Respiratory: Reports: COPD Hematological: Reports: None Gastrointestinal: Reports: GERD, Liver (HEP-C. ) Genitourinary: Reports: UTI Neuro/Psych: Reports: Bipolar Disorder Musculoskeletal: Reports: Back Pain Cancer: Reports: None Last Menstrual Period: 2-3 WEEKS AGO Other Pertinent Past Medical History: HEP-C. CURRENT INTERNAL HEMROIDS. - Surgical History General Surgical History: Reports: Orthopedic (C5-6 Fusion) - Family History Family History: Reports: None - Social History Smoking Status: Current every day smoker, Heavy tobacco smoker Hx Substance Use: Yes Alcohol Screening: Occasionally - Immunizations Tetanus Shot up to Date: Yes Physical Exam - Physical Exam Appearance: Well-appearing, No pain distress, Well-nourished Pain Distress: Mild Eyes: YEN, EOMI, Conjunctiva clear ENT: Ears normal, Nose normal, Oropharynx normal Neck: Supple Respiratory: Airway patent, Breath sounds clear, Breath sounds equal, Respirations nonlabored Cardiovascular: RRR GI/: Soft, Nontender, No masses, Bowel sounds normal, No Organomegaly Musculoskeletal: Limited ROM Skin: Warm Neurological: Sensation intact Psychiatric: Affect appropriate, Mood appropriate Interpretation - Radiology Interpretation Radiology Interpretation By: ED Physician Radiology Results: Positive Physician Notification - Case Discussed Physician Notified: dr guy Time of Notification: 02:04 Critical Care Note - Critical Care Note Total Time (mins): 0 Course - Course Hematology/Chemistry: 05/27/18 01:30 05/27/18 01:30 Orders, Labs, Meds: Lab Review 05/27/18 05/27/18 01:30 01:30 WBC 10.33 H RBC 4.61 Hgb 13.8 Hct 39.8 MCV 86.3 MCH 29.9 MCHC 34.7 RDW Coeff of Ramya 12.9 Plt Count 270 Immature Gran % (Auto) 0.9 Neut % (Auto) 64.7 Lymph % (Auto) 25.9 Valley % (Auto) 5.8 Eos % (Auto) 2.1 Baso % (Auto) 0.6 Immature Gran # (Auto) 0.1 Neut # (Auto) 6.7 Lymph # (Auto) 2.7 Valley # (Auto) 0.6 Eos # (Auto) 0.2 Baso # (Auto) 0.1 Sodium 139.6 Potassium 3.48 L Chloride 105.1 Carbon Dioxide 24.3 Anion Gap 13.68 BUN 9.2 Creatinine 0.66 Estimated GFR (MDRD) 96.00 BUN/Creatinine Ratio 13.93 Glucose 106.3 H Calcium 9.09 Total Bilirubin 0.35 AST 29.4 ALT 22.1 Alkaline Phosphatase 111.1 Total Protein 7.57 Albumin 4.61 Globulin 2.96 Albumin/Globulin Ratio 1.55 Plasma/Serum Alcohol 173.4 H Orders Category Date Time Status IV [ED IV/MEDIPORT/POWERPORT] .ONCE EMERGENCY 05/27/18 01:32 Active CBC W/ AUTO DIFF Stat LAB 05/27/18 01:30 Completed COMPREHENSIVE METABOLIC PANEL Stat LAB 05/27/18 01:30 Completed ETOH LEVEL [BLOOD ALCOHOL] Stat LAB 05/27/18 01:30 Completed 0.9 % Sodium Chloride [Saline Flush] MEDS 05/27/18 01:32 Ordered 1 syr IVF PRN PRN Cefazolin Sodium [Ancef] MEDS 05/27/18 01:44 Discontinued 1 gm .ROUTE .STK-MED ONE Cefazolin Sodium [Ancef] 1 gm MEDS 05/27/18 01:32 Active 0.9 % Sodium Chloride [Sodium Chloride] 100 ml IV ONCE Sodium Chloride 0.9% [Sodium Chloride] 1,000 ml MEDS 05/27/18 01:32 Active IV 100 mls/hr FINGER(S) RIGHT MIN 2V Stat RADS 05/27/18 01:11 Taken Medications Generic Name Dose Route Start Last Admin Trade Name Freq PRN Reason Stop Dose Admin Cefazolin Sodium 1 gm/ Sodium 100 mls @ 100 mls/hr 05/27/18 01:32 05/27/18 01 :51 Chloride IV 05/27/18 02:31 100 mls/hr ONCE STA Administration Sodium Chloride 1,000 mls @ 100 mls/hr 05/27/18 01:32 05/27/18 01:50 Sodium Chloride IV 05/27/18 11:31 100 mls/hr .Q10H STA Administration Sodium Chloride 1 syr 05/27/18 01:32 05/27/18 01:50 Saline Flush IVF 1 syr PRN PRN Administration To flush IV Vital Signs: Temp Pulse Resp BP Pulse Ox 05/27/18 00:56 97.5 F L 102 H 20 130/85 99 Departure - Departure Time of Disposition: 02:04 Disposition: TSF SHORT-TRM HOSP Discharge Problem: Traumatic amputation of fingertip Qualifiers: Encounter type: initial encounter Qualified Code(s): S68.119A - Complete traumatic metacarpophalangeal amputation of unspecified finger, initial encounter Instructions: Finger Amputation (ED) Condition: Stable Pt referred to PMD for follow-up: Yes IPMP verified?: No Allergies/Adverse Reactions: Allergies aspirin Adverse Reaction (Verified 05/27/18 01:02) "ACHY STOMACH" Home Medications: Ambulatory Orders Gabapentin 300 mg PO TID 10/16/17 Hydroxyzine Pamoate 25 mg PO Q4-6H PRN 10/16/17 Naltrexone HCl 50 mg PO DAILY 01/29/18 Oxcarbazepine [Trileptal] 300 mg PO TID 01/29/18 Levothyroxine Sodium 25 mcg PO DAILY 03/27/18 Aripiprazole [Abilify] 25 mg PO DAILY 05/27/18 Transfer Form Completed: Yes Disposition Discussed With: Patient
[2018-05-27] MEDS ORDERED: MORPHINE 2 MG/ML SYRINGE IVP STA (02:05)
[2018-05-27] MEDS ORDERED: MORPHINE 2 MG/ML SYRINGE ONE (02:07)
--- NOTE | 2018-05-27 02:25 | DI ---
EXAM: Three views of the right hand. HISTORY: Amputation. FINDINGS: There are amputation defects through the roney of the distal phalanges of the right third a nd fourth digits with adjacent soft tissue defects. The joint spaces are maintained. There is ring artifact on the right third digit. Impression: Amputation defects through the roney of the distal phalanges of the right third and fourt h digits as described.
== END 2018-05-27 02:50 | disposition short-term general hospital (02) ==
LOC: ED 00:55
DX: S68.122A Partial traumatic metacarpophalangeal amputation of right middle finger, initial encounter (principal); S68.124A Partial traumatic metacarpophalangeal amputation of right ring finger, initial encounter; W23.0XXA Caught, crushed, jammed, or pinched between moving objects, initial encounter; F17.210 Nicotine dependence, cigarettes, uncomplicated
CPT/HCPCS: 36415; 80053; 80307; 85025; 96361; 96365; 96366; 96375; 99285

== ENCOUNTER 2018-05-27 02:46 | Outpatient (CLI) ==
[2018-05-27 01:02] VITALS: BMI 28.5
== END 2018-05-27 03:11 | disposition short-term general hospital (02) ==
LOC: AMBL 02:46
PROVIDERS: ATTEND Family Medicine
DX: S68.122A Partial traumatic metacarpophalangeal amputation of right middle finger, initial encounter (principal); S68.124A Partial traumatic metacarpophalangeal amputation of right ring finger, initial encounter; W23.0XXA Caught, crushed, jammed, or pinched between moving objects, initial encounter